=== PATIENT | female | born 1970 | race African-American/Black ===

== ENCOUNTER 2016-12-16 13:23 | Day surgery (SDC) | payer BC ==
--- NOTE | ~2016-12-16 | OP ---
Record Of Operation [facility] [address] [place]. [address] NAME: BARON SKELTON : 70 STATUS : [facility]#: [id number] AGE: 46 ADM/REG DATE : 12/16/16 MR#: [id number] REPORT SERV DATE: 12/16/16 DICTATED BY: Jo CHICAS DATE: 12/16/16 REPORT STATUS : Draft TRANSCRIBED BY: MODL DATE: 12/16/16 DATE OF PROCEDURE: 12/16/2016 PREOPERATIVE DIAGNOSIS: Abnormal bladder lesions. POSTOPERATIVE DIAGNOSIS: Abnormal bladder lesions. PROCEDURE: Cystoscopy, bilateral retrograde pyelography, bladder biopsy x3, fulguration, examination under anesthesia. SURGEON: Jo Chicas M.D. ANESTHESIA: General with LMA. COMPLICATIONS: None. DRAINS: An 18-Comoran Barnett catheter. BRIEF HISTORY: Ms. Skelton is a 46-year-old black female with a history of apparent recurrent urinary tract infections. She also has a history of blood either from the urethra or vagina not entirely clear where. She has had status post hysterectomy and performed upper tract evaluation, which was negative. Cystoscopy showed some hemorrhagic type lesions in the bladder of unknown etiology. We decided to perform biopsy with retrograde pyelography exam under anesthesia. The risks of bleeding, infection, anesthesia, injury to adjacent organs, need for postoperative catheter, etc., were discussed. There were no unanswered questions. DESCRIPTION OF PROCEDURE: Under excellent general anesthesia, the patient was prepped and draped in a standard lithotomy position. Bimanual exam revealed a normal-appearing urethra. The vagina appeared normal without masses. There were no pelvic masses noted. Cystoscopy was performed with 30 and 70-degree lenses, revealed a normal urethra with some inflammatory polyps. Inspection of the bladder revealed only one lesion just on the left side of the trigone below the left orifice. I did not see any other lesions as noted in the orifice that were very dramatic. There was some scattered erythema. I inserted the rigid biopsy forceps and performed a biopsy from the lesion near the left orifice as well as from the left bladder wall and right bladder wall. The Bugbee electrode was then used to fulgurate the lesion. An 8-Comoran cone-tipped catheter was used to perform a left retrograde pyelogram, which showed a normal caliber ureter without filling defect or obstruction. On the right, similarly, there was a normal-appearing ureter without filling defect or obstruction. There was a sense that there might be a small ureterocele, but no other abnormalities noted. After the lesions have been fulgurated with the Bugbee electrode, the case was terminated. I inserted an 18-Comoran Barnett catheter and planned to discharge Ms. Skelton as an outpatient with the following instructions. DISCHARGE INSTRUCTIONS: 1. Home today. Record Of Operation [address] [place]. [address] NAME: BARON SKELTON : 70 STATUS : [facility] PAT#: [id number] AGE: 46 ADM/REG DATE : 12/16/16 MR#: [id number] REPORT SERV DATE: 12/16/16 DICTATED BY: Jo CHICAS DATE: 12/16/16 REPORT STATUS : Draft TRANSCRIBED BY: RICHARD DATE: 12/16/16 2. Remove catheter in the morning. She is comfortable with this. 3. Percocet 5/325 one to two p.o. q.4 hours p.r.n. pain, #15. 4. She has adequate Pyridium at home. 5. Follow up in my office in one week to review pathology. At this time, I have been unable to contact her family. KARL/RICHARD Jo Chicas M.D. / [id number] CC: Antonia Allred M.D.
[~2016-12-16 13:23] MED LIST: AFEDITAB60 MG PO; PRENAVITE PR PO; VENTOLIN HFA
[2017-04-15] MEDS ORDERED: XYZAL5 MG PO (15:28)
[2017-04-15] MEDS ORDERED: KLONO1 PO (15:28)
[2017-04-15] MEDS ORDERED: PROAIR HFA INH (15:29)
[2017-04-15] MEDS ORDERED: ADALAT CC30 MG PO (15:29)
[2017-04-15] MEDS ORDERED: BREO ELLIPTA INH (15:30)
[2017-04-15] MEDS ORDERED: PROBIOTIC PO (15:30)
[2017-04-15] MEDS ORDERED: HALF81 PO (15:30)
[2017-04-15] MEDS ORDERED: PRENAVITE PO (15:30)
[2017-04-15] MEDS ORDERED: DEPO-ESTRAD5 MG/1 ML IM (15:31)
[2017-04-15] MEDS ORDERED: PEPCID40 MG PO (15:32)
[2017-04-15] MEDS ORDERED: PROZAC PO (15:32)
== END 2016-12-16 18:12 | disposition home or self-care (01) ==
LOC: SDC 13:23
PROC: 0TBB8ZX Excision of Bladder, Via Natural or Artificial Opening Endoscopic, Diagnostic (ICD-10-PCS; 2016-12-16)
PROC: 0TBB8ZX Excision of Bladder, Via Natural or Artificial Opening Endoscopic, Diagnostic (ICD-10-PCS; 2016-12-16)
PROC: 0T9B8ZX Drainage of Bladder, Via Natural or Artificial Opening Endoscopic, Diagnostic (ICD-10-PCS; 2016-12-16)
PROC: 0T5B8ZZ Destruction of Bladder, Via Natural or Artificial Opening Endoscopic (ICD-10-PCS; principal; 2016-12-16 15:15)
DX: N30.21 Other chronic cystitis with hematuria (principal); N30.20 Other chronic cystitis without hematuria; M19.90 Unspecified osteoarthritis, unspecified site; J45.909 Unspecified asthma, uncomplicated; D63.1 Anemia in chronic kidney disease; N18.9 Chronic kidney disease, unspecified; I12.9 Hypertensive chronic kidney disease with stage 1 through stage 4 chronic kidney disease, or unspecified chronic kidney disease; Z79.899 Other long term (current) drug therapy; Z87.891 Personal history of nicotine dependence; Z88.0 Allergy status to penicillin; Z88.8 Allergy status to other drugs, medicaments and biological substances; Z98.890 Other specified postprocedural states
CPT/HCPCS: 74420; 88305; A9270-GY; C1758; J2250; J2270; J2405; J3010; Q9967

== ENCOUNTER 2016-12-19 06:04 | Day surgery (SDC) | payer BC ==
[2016-12-10 13:03] LABS: HEMATOCRIT 39.3 % (36.0-48.0); HEMOGLOBIN 13.3 g/dL (12.0-16.0)
[2016-12-10 13:17] LABS: BUN (BLOOD UREA NITROGEN) 13 MG/DL (6-23); CHLORIDE, SERUM 106 MMOL/L (96-112); CO2 (CARBON DIOXIDE) 26 MMOL/L (24-34); CREATININE 1.08 MG/DL (0.55-1.02); GFR AFRICAN AMERICAN 71 ML/MIN (>=60); GFR NON AFRICAN AMERICAN 62 ML/MIN (>=60); GLUCOSE, SERUM 90 MG/DL (60-99); SODIUM, SERUM 139 MMOL/L (135-148)
--- NOTE | ~2016-12-19 | OP ---
Record Of [address] [place]. [address] NAME: BARON COOPER : 70 STATUS : REG [facility] PAT#: [id number] AGE: 46 ADM/REG DATE : 12/19/16 MR#: [id number] REPORT SERV DATE: 12/19/16 DICTATED BY: BAYRON VALENTINE DATE: 12/19/16 REPORT STATUS : Draft TRANSCRIBED BY: MODL DATE: 12/19/16 DATE OF PROCEDURE: 12/19/2016 PREOPERATIVE DIAGNOSES: 1. Septal deviation. 2. Bilateral inferior turbinate hypertrophy. 3. Chronic nasal obstruction. 4. Bilateral chronic ethmoid sinusitis. 5. Bilateral chronic maxillary sinusitis. 6. Bilateral chronic frontal sinusitis. 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 POSTOPERATIVE DIAGNOSES: 1. Septal deviation. 2. Bilateral inferior turbinate hypertrophy. 3. Chronic nasal obstruction. 4. Bilateral chronic ethmoid sinusitis. 5. Bilateral chronic maxillary sinusitis. 6. Bilateral chronic frontal sinusitis. 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 PROCEDURE: 1. Bilateral endoscopic total ethmoidectomy. 2. Bilateral endoscopic frontal sinusotomy. 3. Bilateral endoscopic maxillary sinus antrostomy. 4. Left endoscopic excision of mason bullosa. 5. Septoplasty. 6. Bilateral inferior turbinoplasty. SURGEON: Bayron Valentine M.D. ANESTHESIA: General. COMPLICATIONS: None. COUNTS: All counts correct following the procedure. ESTIMATED BLOOD LOSS: 20 mL. PREOPERATIVE INFORMED CONSENT: We discussed risks and benefits of surgery to include, but not limited to bleeding, infection, possible CSF leak, possible ocular injury including blindness, possible persistent sinus disease despite surgery, possible persistent nasal obstruction, and possible need for revision surgery. She understands the risks and benefits of surgery and consent is on chart. PROCEDURE IN DETAIL: The patient was brought to the operating suite and placed on the Record Of [address] [id number] NAME: BARON COOPER : 70 STATUS : REG [facility] PAT#: [id number] AGE: 46 ADM/REG DATE : 12/19/16 MR#: [id number] REPORT SERV DATE: 12/19/16 DICTATED BY: BAYRON VALENTINE DATE: 12/19/16 REPORT STATUS : Draft TRANSCRIBED BY: RICHARD DATE: 12/19/16 operating table in the supine position. General endotracheal anesthesia was initiated without incident. The head and neck were cleaned, prepped and draped in the usual sterile fashion. Following this, both middle turbinates, uncinate processes, inferior turbinates, and the septum were injected with approximately 20 mL of 1% lidocaine with 1:100,000 epinephrine for hemostasis. Starting on the left-hand side of the nose using the Acclarent frontal sinus introducer, the illuminated wire was carefully placed across the nasofrontal duct. The balloon was advanced over the wire and dilated up to 10 atmospheres along the length of the nasofrontal duct. This was repeated on the right-hand side in a similar fashion. Attention was taken to the left middle turbinate where the incision was made in the anterior middle turbinate using a sickle knife, and using straight Juvencio-Cut forceps, the lateral portion of the mason bullosa was removed. The uncinate process was then taken down using pediatric backbiting forceps and the Xomed sinus shaver, and the natural ostium was enlarged using straight and side-biting Juvencio-Cut forceps. The ethmoid bulla was opened widely using the Xomed sinus shaver. Then, the basal lamella of the middle turbinate was penetrated using the Xomed sinus shaver and then working from a posterior to anterior fashion along the lamina papyracea, the posterior and anterior ethmoid air cells were marsupialized. The middle meatus was packed with adrenaline-soaked pledgets and attention was taken to the right side of the nose. In similar fashion as I described on the left, the uncinate process was taken down using pediatric backbiting forceps and Xomed sinus shaver. The natural ostium of the maxillary sinus was again enlarged using straight and side-biting Juvencio-Cut forceps. Again, the ethmoid bulla was opened widely using the Xomed sinus shaver and then the basal lamella was penetrated using the Xomed sinus shaver. Then working from the posterior to anterior fashion along the lamina papyracea, the posterior and anterior ethmoid air cells were marsupialized. Middle meatus was then packed with adrenaline-soaked pledgets and attention was taken to the septum. The patient was brought to the operating suite and placed on the operating table in the supine position. General endotracheal anesthesia was initiated without incident. The patient's head and neck were cleaned, prepped and draped in the usual sterile fashion. Following this, both sides of the septum and inferior turbinates were injected with 1% lidocaine with 1:100,000 epinephrine for hemostasis. Approximately 12.0 mL were used. Following this, a #15 blade scalpel was used to performed a left hemitransfixion incision down to the underlying septal cartilage. A mucoperichondrial flap was raised along the left side of the nasal septum using Ovalo and Abad elevators. The bony cartilaginous junction was using the Comal elevator and then the mucoperiosteum was raised off both sides of the bony nasal septum. A thin strip of the cartilaginous septum along the maxillary crest was removed using a #15 blade scalpel and a Abad elevator, allowing the cartilaginous septum to swing back in the midline. The maxillary crest was exposed using the Catherine elevator and removed using the 6.0 mm straight osteotome. The deviated bony nasal septum was taken down using open Cesar-Vincent forceps, as well as Anisa forceps. Once the septal deviation had been corrected, the left hemitransfixion incision was closed using interrupted 4-0 chromic suture. The Xomed turbinate shaver was then used to perform submucous resection of both inferior Record Of Operation [address] [id number] NAME: BARON COOPER : 70 STATUS : REG [facility] PAT#: [id number] AGE: 46 ADM/REG DATE : 12/19/16 MR#: [id number] REPORT SERV DATE: 12/19/16 DICTATED BY: BAYRON VALENTINE DATE: 12/19/16 REPORT STATUS : Draft TRANSCRIBED BY: MODCoty DATE: 12/19/16 turbinates without difficulty and both inferior turbinates were infractured and both the medial and lateral surfaces were cauterized using the Harmonic scalpel. Both inferior turbinates were then outfractured. Breathe-Easy septal splints were then placed on either side of the nasal septum and sutured in the midline using 2-0 nylon suture. The nasopharynx was suctioned free of any blood clots. The pledgets were removed from the middle meatus bilaterally. The patient was awakened from anesthesia and taken to recovery room in stable condition. JG/JORDANL Bayron Valentine M.D. / [id number] CC: Antonia Griggs M.D.
[2017-04-15] MEDS ORDERED: XYZAL5 MG PO (15:28)
[2017-04-15] MEDS ORDERED: KLONO1 PO (15:28)
[2017-04-15] MEDS ORDERED: PROAIR HFA INH (15:29)
[2017-04-15] MEDS ORDERED: ADALAT CC30 MG PO (15:29)
[2017-04-15] MEDS ORDERED: HALF81 PO (15:30)
[2017-04-15] MEDS ORDERED: BREO ELLIPTA INH (15:30)
[2017-04-15] MEDS ORDERED: PROBIOTIC PO (15:30)
[2017-04-15] MEDS ORDERED: PRENAVITE PO (15:30)
[2017-04-15] MEDS ORDERED: DEPO-ESTRAD5 MG/1 ML IM (15:31)
[2017-04-15] MEDS ORDERED: PEPCID40 MG PO (15:32)
[2017-04-15] MEDS ORDERED: PROZAC PO (15:32)
== END 2016-12-19 23:59 | disposition home or self-care (01) ==
LOC: MSC 06:04
PROVIDERS: Otolaryngology
PROC: 09BL8ZZ Excision of Nasal Turbinate, Via Natural or Artificial Opening Endoscopic (ICD-10-PCS; 2016-12-19)
PROC: 09TL0ZZ Resection of Nasal Turbinate, Open Approach (ICD-10-PCS; 2016-12-19)
PROC: 09TU4ZZ Resection of Right Ethmoid Sinus, Percutaneous Endoscopic Approach (ICD-10-PCS; 2016-12-19)
PROC: 09TV4ZZ Resection of Left Ethmoid Sinus, Percutaneous Endoscopic Approach (ICD-10-PCS; 2016-12-19)
PROC: 09BT4ZZ Excision of Left Frontal Sinus, Percutaneous Endoscopic Approach (ICD-10-PCS; 2016-12-19)
PROC: 09BS4ZZ Excision of Right Frontal Sinus, Percutaneous Endoscopic Approach (ICD-10-PCS; 2016-12-19)
PROC: 099R4ZZ Drainage of Left Maxillary Sinus, Percutaneous Endoscopic Approach (ICD-10-PCS; principal; 2016-12-19 07:15)
PROC: 099Q4ZZ Drainage of Right Maxillary Sinus, Percutaneous Endoscopic Approach (ICD-10-PCS; 2016-12-19 07:15)
PROC: 09SM0ZZ Reposition Nasal Septum, Open Approach (ICD-10-PCS; 2016-12-19 07:15)
DX: J32.8 Other chronic sinusitis (principal); J34.2 Deviated nasal septum; J34.3 Hypertrophy of nasal turbinates; J34.89 Other specified disorders of nose and nasal sinuses; I10 Essential (primary) hypertension; J45.909 Unspecified asthma, uncomplicated; Z90.710 Acquired absence of both cervix and uterus; Z88.0 Allergy status to penicillin; Z88.8 Allergy status to other drugs, medicaments and biological substances; Z79.52 Long term (current) use of systemic steroids; Z79.899 Other long term (current) drug therapy; Z83.3 Family history of diabetes mellitus; Z82.3 Family history of stroke; Z82.49 Family history of ischemic heart disease and other diseases of the circulatory system; Z82.5 Family history of asthma and other chronic lower respiratory diseases; Z87.891 Personal history of nicotine dependence; Z91.041 Radiographic dye allergy status; Z98.890 Other specified postprocedural states
CPT/HCPCS: 80048; 85014; 85018; 88305; 93005; A9270-GY; C1726; J0690; J2250; J2405; J2710; J3010